=== PATIENT | female | born 1965 | race Caucasian/White ===

== ENCOUNTER 2017-04-01 22:30 | Emergency (ER) | payer OTHER | END 2017-04-02 00:10 | disposition left against medical advice (07) | LOC: FER 22:30 | DX: M54.2 Cervicalgia (principal); M54.9 Dorsalgia, unspecified; W10.9XXA Fall (on) (from) unspecified stairs and steps, initial encounter; Z53.8 Procedure and treatment not carried out for other reasons ==

== ENCOUNTER 2020-11-28 15:45 | Emergency (ER) | payer OTHER ==
[2020-11-28 17:08] LABS: BASOPHIL 0.6 % (0-2); EOSINOPHIL 2.3 % (0-5); HCT 37.2 % (37.0-47.0); HGB 12.3 g/dl (12.5-16.0); LYMPHOCYTE 25.3 % (15-48); MCH 30.7 pg (25.0-31.0); MCHC 33.1 g/dL (32.0-36.0); MCV 92.8 fL (78.0-100.0); MONOCYTE 9.4 % (0-12); MPV 11.4 fL (6.0-9.5); NEUTROPHIL 61.9 % (41-80); NRBC 0; PLT 279 K/uL (150-400); RBC 4.01 M/uL (4.20-5.40); RDW 13.2 % (11.5-14.0); WBC 9.6 K/uL (4.0-10.5)
[2020-11-28 17:14] LABS: CORONAVIRUS 2019 SARS-COV-2 NEGATIVE (NEGATIVE); INFLUENZA A NAA NEGATIVE (NEGATIVE)
[2020-11-28 17:18] LABS: ALBUMIN 3.3 g/dL (3.4-5.0); BILIRUBIN - TOTAL 0.1 mg/dL (0.2-1.0); CREATININE 0.63 mg/dL (0.51-0.95); GLOBULIN (CALCULATION) 3.2 g/dL; MAGNESIUM 1.8 mg/dL (1.8-2.4); POTASSIUM 4.4 mmol/L (3.5-5.1); TOTAL PROTEIN 6.5 g/dL (6.4-8.2)
[2020-11-28 17:18] LABS: INR 0.96 (0.9-1.2); PROTHROMBIN TIME 12.1 SECONDS (11.4-13.6)
[2020-11-28 17:19] LABS: PTT 28.4 SECONDS (22.2-34.7)
[2020-11-28 17:28] LABS: LACTIC ACID 0.9 mmol/L (0.4-1.9)
[2020-11-28 17:37] LABS: PRO-BNP 60 pg/mL (<125)
[2020-11-28] MEDS ORDERED: VIBRAMYCIN100 MG PO (18:43)
[2020-11-28] MEDS ORDERED: MEDROL 4MG DOSEP4 MG PO (18:43)
[2020-11-28] MEDS ORDERED: NORCO 5-325 TA1 EACH PO (18:43)
[2020-11-28] MEDS ORDERED: VENTOLIN HFA18 GM INH (18:43)
[2020-11-28] MEDS ORDERED: TESSALON PERLE100 M1 PO (18:56)
[2020-11-28 19:16] LABS: BILIRUBIN NEGATIVE (NEGATIVE); BLOOD 2+ Ery/uL (NEGATIVE); COLOR YELLOW (YELLOW); GLUCOSE (U) NORMAL (NORMAL); LEUKOCYTES NEGATIVE Leu/uL (NEGATIVE); NITRITE NEGATIVE (NEGATIVE); PROTEIN NEGATIVE (NEGATIVE); SPECIFIC GRAVITY 1.015 (1.001-1.030); UROBILINOGEN 0.2 mg/dL (0.2-1.0)
[2020-11-28 19:17] LABS: CLARITY SLIGHTLY HAZY (CLEAR)
[2020-11-28 19:23] LABS: BACTERIA TRACE; MUCOUS TRACE; URINARY WBC RARE
[2020-11-28 19:24] LABS: YEAST PRESENT
== END 2020-11-28 19:15 | disposition home or self-care (01) ==
LOC: FER 15:45
PROVIDERS: Emergency Medicine
DX: R55 Syncope and collapse (principal); J44.9 Chronic obstructive pulmonary disease, unspecified; M47.816 Spondylosis without myelopathy or radiculopathy, lumbar region; Z20.822 Contact with and (suspected) exposure to COVID-19
CPT/HCPCS: 36415; 70450; 71250; 72131; 80053; 81001; 82728; 83540; 83605; 83615; 83735; 83880; 84145; 84484; 85025; 85610; 85730; 86140; 93005; J1170; J2405; J7030; U0002